=== PATIENT | female | born 1950 | race Caucasian/White ===

== ENCOUNTER 2019-05-18 06:27 | Observation (INO) | payer MEDICARE ==
--- NOTE | 2019-05-18 07:03 | ERPHSYRPT ---
- History of Present Illness Time Seen by Provider: 05/18/19 07:02 Historian: patient Patient Subjective Stated Complaint: PT STATES SHE BEGAN CONGESTION, COUGH, FLU LIKE SYMPTOMS, DRY HEAVES AND HEADACHE 3 AM. Triage Nursing Assessment: PT ALERT AND ORIENTED, STATES SHE HAS HEADACHE THAT IS 10/10, PT IS SITTING UP IN BED AND WRETCHING. Physician History: The patient presents with a chief complaint of nausea and dry heaving that started around 0300 this morning. She reports she has had flu-like symptoms over the past 2-3 days to include subjective fever, L otalgia, rhinorrhea, cough, sore throat, and headache. She tooks some Aleve last night before going to bed with no relief in her symptoms. Since 0300, she has had multiple episodes of nonbloody/nonbilious vomiting. She denies diarrhea, abdominal pain, chest pain, shortness of breath, and symptoms consistent with a UTI. The patient reports that she is a smoker nor does she smoke in the past. She is accompanied emergency department by her sister. Headache is diffuse and radiating down her neck. Associated with retrobulbar eye pain bilaterally. Timing/Duration: other (Vomiting onset 0300) Activities at Onset: none Associated Symptoms: fever/chills, headache, nausea, vomiting Allergies/Adverse Reactions: Sulfa (Sulfonamide Antibiotics) Allergy (Verified 05/18/19 18:28) pt unsure of reaction Home Medications: No Reportable Medications [No Reported Medications] 05/18/19 [History] Hx Influenza Vaccination/Date Given: No - Review of Systems Constitutional: Fever, Chills, Fatigue Eyes: Eye Pain, Photophobia, No Vision Changes, No Double Vision Ears, Nose, & Throat: Ear Pain, Nose Congestion, Throat Pain, No Ear Discharge Respiratory: Cough, No Dyspnea on Exertion (ASHLEY), No Stridor, No Wheezing Cardiac: No Chest Pain, No Palpitations, No Syncope Abdominal/Gastrointestinal: Nausea, Vomiting, No Abdominal Pain, No Diarrhea, No Constipation Genitourinary Symptoms: No Dysuria, No Frequency, No Hematuria Musculoskeletal: Myalgias Skin: No No Symptoms Neurological: Headache Psychological: No Symptoms Endocrine: No Symptoms Hematologic/Lymphatic: No Symptoms - Past Medical History Pertinent Past Medical History: No - Past Surgical History Past Surgical History: Yes Other Surgical History: HAND, HYSTERECTOMY - Social History Smoking Status: Never smoker Exposure to second hand smoke: No Drug Use: none - Female History Hx Last Menstrual Period: HYSTERECTOMY - Nursing Vital Signs Nursing Vital Signs: Initial Vital Signs Temperature 98.0 F 05/18/19 06:42 Pulse Rate 122 H 05/18/19 06:42 Respiratory Rate 18 05/18/19 06:42 Blood Pressure 185/97 05/18/19 06:42 O2 Sat by Pulse Oximetry 98 05/18/19 06:42 Pain Scale Pain Intensity 5 - Physical Exam General Appearance: mild distress, other (Intermittently dry heaving during exam ) Eye Exam: PERRL/EOMI, photophobia, No scleral icterus Ears, Nose, Throat Exam: pharynx normal, moist mucous membranes, TM abnormal (L) , other (Left TM appeared to be bulging and with purulent appearing with no active drainage), No pharyngeal erythema, No tonsillar exudate Neck Exam: normal inspection, meningismus, No limited range of motion, No midline tenderness Respiratory Exam: normal breath sounds, lungs clear, No respiratory distress, No airway intact, No diminished breath sounds, No accessory muscle use Cardiovascular Exam: normal heart sounds, normal peripheral pulses, tachycardia , capillary refill <2 sec, other (Tachycardic) Gastrointestinal/Abdomen Exam: soft, No tenderness, No distention, No mass Back Exam: normal inspection, No CVA tenderness Extremity Exam: normal inspection, normal range of motion Neurologic Exam: alert, oriented x 3, cooperative, other (Seems anxious), No motor deficits, No sensory deficit, No uncooperative Skin Exam: normal color, No warm, No dry, No rash, No petechiae, No jaundice SpO2 Interpretation: normal SpO2: 98 O2 Delivery: Room Air Procedures - Lumbar Puncture Timeout: Performed Indication: headache, r/o meningitis Lumbar Puncture: consent obtained, lying, 1% lidocaine local anesth, 4-5 lumbar space, fluid color cloudy, amount of fluid obtained, no complications - Course Nursing assessment & vital signs reviewed: Yes - Radiology Exams Chest X-ray Interpretation: Interpreted by me, Reviewed by me (No acute cardiopulmonary process), Teleradiologist Report (Hiatal hernia), Negative - CT Exams Head CT Interpretation: Negative (I spoke to the radiologist, who stated the foci of gas is inconsequential. May be normal varient), Tele-radiologist Report, Other (No acute intracranial process identified ) Ordered Tests: Active Orders 24 hr Category Date Time Status IV Insertion STAT Care 05/18/19 07:14 Completed IV Insertion-2nd Peripheral STAT Care 05/18/19 16:52 Completed Oxygen-ED Only Nasal Cannula 2 lpm Care 05/18/19 14:54 Completed PO Fluid Challenge STAT Care 05/18/19 08:49 Completed CHEST 2 VIEWS (PA AND LAT) Stat Exams 05/18/19 07:14 Completed HEAD WITHOUT CONTRAST [CT] Stat Exams 05/18/19 08:57 Completed BLOOD CULTURE Stat Lab 05/18/19 16:40 Received BMP Stat Lab 05/18/19 07:30 Completed CBC W DIFF Stat Lab 05/18/19 07:30 Completed CSF GLUCOSE Stat Lab 05/18/19 12:45 Completed CSF PROTEIN Stat Lab 05/18/19 12:45 Completed CSF, CELL COUNT Stat Lab 05/18/19 12:45 Completed CULTURE,CSF Stat Lab 05/18/19 12:45 Results Transfer Order Routine Transfer 05/18/19 Completed Medication Summary Generic Name Dose Route Start Last Admin Trade Name Freq PRN Reason Stop Dose Admin Acetaminophen 1,000 mg 05/18/19 18:22 Tylenol Extra Strength 500 Mg PO 06/17/19 18:21 Q4H PRN PRN HEADACHE Ceftriaxone Sodium/Dextrose 2 g in 50 mls @ 100 mls/hr 05/19/19 17:00 Rocephin 2 Gm-D5w 50ml Bag IV 06/18/19 16:59 Q24H10 SATINDER Vancomycin HCl 2 gm in 500 mls @ 125 mls/hr 05/19/19 10:00 Vancomycin 1gm/ Ns 250ml IV 06/18/19 09:59 Q24H10 SATINDER Morphine Sulfate 5 mg 05/18/19 18:22 05/18/19 18:53 Morphine Sulfate 10 Mg/Ml IV 05/23/19 18:21 5 mg Q4H PRN PRN Administration PAIN Ondansetron HCl 4 mg 05/18/19 18:22 Zofran 4 Mg/2 Ml Vial IV 06/17/19 18:21 Q6H PRN PRN NAUSEA/VOMITING Discontinued Medications Generic Name Dose Route Start Last Admin Trade Name Freq PRN Reason Stop Dose Admin Acetaminophen 975 mg 05/18/19 08:48 05/18/19 09:06 Tylenol 325 Mg PO 05/18/19 08:49 975 mg STAT ONE Administration Acetaminophen Confirm 05/18/19 09:05 Tylenol 325 Mg Administered 05/18/19 09:06 Dose 975 mg .ROUTE .STK-MED ONE Fentanyl Citrate 100 mcg 05/18/19 11:24 05/18/19 11:30 Sublimaze 100 Mcg/2 Ml IV 05/18/19 11:25 100 mcg STAT ONE Administration Fentanyl Citrate Confirm 05/18/19 11:28 Sublimaze 100 Mcg/2 Ml Administered 05/18/19 11:29 Dose 100 mcg .ROUTE .STK-MED ONE Hydromorphone HCl 1 mg 05/18/19 13:29 05/18/19 13:32 Hydromorphone 1 Mg/Ml Ampule IV 05/18/19 13:30 1 mg STAT ONE Administration Hydromorphone HCl Confirm 05/18/19 13:30 Hydromorphone 1 Mg/Ml Ampule Administered 05/18/19 13:31 Dose 1 mg .ROUTE .STK-MED ONE Hydromorphone HCl 1 mg 05/18/19 18:03 05/18/19 18:08 Hydromorphone 1 Mg/Ml Ampule IV 05/18/19 18:04 1 mg STAT ONE Administration Hydromorphone HCl Confirm 05/18/19 18:01 Hydromorphone 1 Mg/Ml Ampule Administered 05/18/19 18:02 Dose 1 mg .ROUTE .STK-MED ONE Sodium Chloride 1,000 mls @ 999 mls/hr 05/18/19 07:14 05/18/19 09:47 Sodium Chloride 0.9% 1000 Ml IV 05/18/19 08:14 Infused .Q1H1M STA Infusion Sodium Chloride Confirm 05/18/19 07:19 Sodium Chloride 0.9% 1000 Ml Administered 05/18/19 07:20 Dose 1,000 mls @ ud .ROUTE .STK-MED ONE Ceftriaxone Sodium/Dextrose 2 g in 50 mls @ 100 mls/hr 05/19/19 10:00 16:56 Rocephin 2 Gm-D5w 50ml Bag IV 06/18/19 09:59 100 ml/hr Q24H10 SATINDER 100 mls/hr Administration Vancomycin HCl 1 gm in 250 mls @ 167 mls/hr 05/18/19 16:45 05/18/19 18:51 Vancomycin 1gm/ Ns 250ml IV 05/18/19 18:44 167 mls/hr Q1H SATINDER Administration Ceftriaxone Sodium/Dextrose Confirm 05/18/19 16:54 Rocephin 2 Gm-D5w 50ml Bag Administered 05/18/19 16:55 Dose 2 g in 50 mls @ ud IV .STK-MED ONE Vancomycin HCl Confirm 05/18/19 16:54 Vancomycin 1gm/ Ns 250ml Administered 05/18/19 16:55 Dose 250 mls @ ud IV .STK-MED ONE Vancomycin HCl Confirm 05/18/19 18:45 Vancomycin 1gm/ Ns 250ml Administered 05/18/19 18:46 Dose 250 mls @ ud IV .STK-MED ONE Ketorolac Tromethamine 15 mg 05/18/19 08:48 05/18/19 09:06 Toradol 30 Mg Injection IV 05/18/19 08:49 15 mg STAT ONE Administration Ketorolac Tromethamine Confirm 05/18/19 09:05 Toradol 30 Mg Injection Administered 05/18/19 09:06 Dose 30 mg .ROUTE .STK-MED ONE Ondansetron HCl 4 mg 05/18/19 07:14 05/18/19 07:21 Zofran 4 Mg/2 Ml Vial IV 05/18/19 07:15 4 mg STAT STA Administration Ondansetron HCl Confirm 05/18/19 07:19 Zofran 4 Mg/2 Ml Vial Administered 05/18/19 07:20 Dose 4 mg .ROUTE .STK-MED ONE Ondansetron HCl 4 mg 05/18/19 13:29 05/18/19 13:33 Zofran 4 Mg/2 Ml Vial IV 05/18/19 13:30 4 mg STAT ONE Administration Ondansetron HCl Confirm 05/18/19 13:32 Zofran 4 Mg/2 Ml Vial Administered 05/18/19 13:33 Dose 4 mg .ROUTE .STK-MED ONE Ondansetron HCl 4 mg 05/18/19 18:03 05/18/19 18:08 Zofran 4 Mg/2 Ml Vial IV 05/18/19 18:04 4 mg STAT ONE Administration Ondansetron HCl Confirm 05/18/19 18:02 Zofran 4 Mg/2 Ml Vial Administered 05/18/19 18:03 Dose 4 mg .ROUTE .STK-MED ONE Lab/Rad Data: Laboratory Result Diagrams 05/18/19 07:30 05/18/19 07:30 Laboratory Results 05/18/19 05/18/19 05/18/19 Range/Units 12:45 12:45 07:30 WBC (4.0-10.5) K/mm3 RBC (4.1-5.4) M/mm3 Hgb (12.0-16.0) gm/dl Hct (35-47) % MCV (78-100) fl MCH (26-32) pg MCHC (32-36) g/dl RDW (11.5-14.0) % Plt Count (150-450) K/mm3 MPV (6-9.5) fl Gran % (36.0-66.0) % Eos # (Auto) (0-0.5) Absolute Lymphs (auto) (1.0-4.6) Absolute Monos (auto) (0.0-1.3) Lymphocytes % (24.0-44.0) % Monocytes % (0.0-12.0) % Eosinophils % (0.00-5.0) % Basophils % (0.0-0.4) % Absolute Granulocytes (1.4-6.9) Basophils # (0-0.4) Sodium (137-145) mmol/L Potassium (3.5-5.1) mmol/L Chloride (98-107) mmol/L Carbon Dioxide (22-30) mmol/L Anion Gap (5-15) MEQ/L BUN (7-17) mg/dL Creatinine (0.52-1.04) mg/dL Estimated GFR ML/MIN Glucose (74-106) mg/dL Calcium (8.4-10.2) mg/dL CSF Color COLORLESS CSF Clarity SL CLOUDY CSF WBC 1892 H (0-6) CU. MM CSF RBC 572 H (0-2) CU. MM CSF Protein (2) > 600 H (12-60) mg/dL CSF Glucose < 20 L (40-70) mg/dL Influenza Type A Ag NEGATIVE (NEGATIVE) Influenza Type B Ag NEGATIVE (NEGATIVE) RSV (PCR) NEGATIVE (Negative) 05/18/19 05/18/19 Range/Units 07:30 07:30 WBC 9.8 (4.0-10.5) K/mm3 RBC 4.19 (4.1-5.4) M/mm3 Hgb 11.6 L (12.0-16.0) gm/dl Hct 36.4 (35-47) % MCV 86.9 (78-100) fl MCH 27.7 (26-32) pg MCHC 31.9 L (32-36) g/dl RDW 14.5 H (11.5-14.0) % Plt Count 330 (150-450) K/mm3 MPV 9.5 (6-9.5) fl Gran % 62.5 (36.0-66.0) % Eos # (Auto) 0.15 (0-0.5) Absolute Lymphs (auto) 2.59 (1.0-4.6) Absolute Monos (auto) 0.90 (0.0-1.3) Lymphocytes % 26.6 (24.0-44.0) % Monocytes % 9.2 (0.0-12.0) % Eosinophils % 1.5 (0.00-5.0) % Basophils % 0.2 (0.0-0.4) % Absolute Granulocytes 6.09 (1.4-6.9) Basophils # 0.02 (0-0.4) Sodium 140 (137-145) mmol/L Potassium 4.0 (3.5-5.1) mmol/L Chloride 105 (98-107) mmol/L Carbon Dioxide 27 (22-30) mmol/L Anion Gap 12.1 (5-15) MEQ/L BUN 11 (7-17) mg/dL Creatinine 0.62 (0.52-1.04) mg/dL Estimated GFR > 60.0 ML/MIN Glucose 142 H (74-106) mg/dL Calcium 9.2 (8.4-10.2) mg/dL CSF Color CSF Clarity CSF WBC (0-6) CU. MM CSF RBC (0-2) CU. MM CSF Protein (2) (12-60) mg/dL CSF Glucose (40-70) mg/dL Influenza Type A Ag (NEGATIVE) Influenza Type B Ag (NEGATIVE) RSV (PCR) (Negative) - Progress Progress: improved, re-examined Progress Note: 05/18/19 10:[address] reviewed by me and with no evidence of SAH, ICH, or mass. No acute process identified. Awaiting formal radiology review. 05/18/19 10:55 I discussed the patient's head CT and laboratory workup findings. She does have significant rigidity and retro-orbital pain ongoing headache. Suspicious the patient may have a meningitis, suspect likely viral meningitis at this time. We discussed risks benefits of lumbar puncture and the patient decided she wanted to proceed with a lumbar puncture for definitive diagnosis. She is currently being consented for the procedure at this time. 05/18/19 17:15 Nursing paging the patient's primary physician for admission. 05/18/19 16:46 I spoke to the patient's primary care provider who agreed to admit the patient. She recommended giving the patient the choice of transfer to stay at this location. If she wants to stay here, she recommended admitting under Dr. Lott. We discussed the CSF results and the fact that the gram stain is negative, but with a large CSF pleuocytosis with neutrophils. She recommended treating empirically with vancomycin and ceftriaxone until the CSF culture and bacterial PCR can result. 05/18/19 17:00 I spoke with the patient pertaining to admission at this location vs. transfer and the patient requested to stay at this location. Dr. Martinez was then paged and agreed to admit the patient to this facility. She was updated with the discussion with her PCP about treating with empiric abx until her CSF cx can result. Likely viral meningitis, but if proven to be bacterial, she can be transferred at that time. Discussed with : Sarah (I spoke to Dr. Martinez, who is covering for [facility] and non doctor. I discussed the case with her and she agreed to admit for observation) Will see patient in: hospital (observation) Counseled pt/family regarding: lab results, diagnosis, rad results - Departure Departure Disposition: Observation Clinical Impression: Meningitis Condition: Fair Critical Care Time: Yes Critical Care Time(excluding separately billable procedures): Critical 75-104 mins
[2019-05-18] MEDS ORDERED: Sodium Chloride 0.9% 1000 ML 1,000 ML IV STA (07:14)
[2019-05-18] MEDS ORDERED: Zofran 4 MG/2 ML VIAL IV STA (07:14)
[2019-05-18] MEDS ORDERED: Sodium Chloride 0.9% 1000 ML 1,000 ML ONE (07:19)
[2019-05-18] MEDS ORDERED: Zofran 4 MG/2 ML VIAL ONE ×4 (07:19→22:49)
[2019-05-18 07:57] LABS: Absolute Neutrophil Ct (ANC) 6.09 (1.4-6.9); BASOPHIL % 0.2 % (0.0-0.4); Basophil (Absolute #) 0.02 (0-0.4); Eosinophil % 1.5 % (0.00-5.0); Eosinophil (Absolute #) 0.15 (0-0.5); Hematocrit 36.4 % (35-47); Hemoglobin 11.6 gm/dl (12.0-16.0); Lymphocyte (Absolute #) 2.59 (1.0-4.6); Lymphocytes % 26.6 % (24.0-44.0); Mean Cell Volume 86.9 fl (78-100); Mean Corpuscular Hemoglobin 27.7 pg (26-32); Mean Corpuscular Hgb Concent. 31.9 g/dl (32-36); Mean Platelet Volume 9.5 fl (6-9.5); Monocytes % 9.2 % (0.0-12.0); Neutrophil % 62.5 % (36.0-66.0); Platelet Count 330 K/mm3 (150-450); Red Blood Count 4.19 M/mm3 (4.1-5.4); Red Cell Distribution Width 14.5 % (11.5-14.0); White Blood Count 9.8 K/mm3 (4.0-10.5)
[2019-05-18 08:01] LABS: ANION GAP 12.1 MEQ/L (5-15); BLOOD UREA NITROGEN 11 mg/dL (7-17); CHLORIDE 105 mmol/L (98-107); Calcium 9.2 mg/dL (8.4-10.2); Carbon Dioxide 27 mmol/L (22-30); Creatinine 1 0.62 mg/dL (0.52-1.04); Glucose 142 mg/dL (74-106); SODIUM 140 mmol/L (137-145)
[2019-05-18 08:29] LABS: INFLUENZA A NEGATIVE (NEGATIVE); INFLUENZA B NEGATIVE (NEGATIVE); RESPIRATORY SYNCTIAL VIRUS NEGATIVE (Negative)
[2019-05-18] MEDS ORDERED: TYLENOL 325 MG PO ONE (08:48)
[2019-05-18] MEDS ORDERED: TORAdol 30 mg Injection IV ONE (08:48)
[2019-05-18] MEDS ORDERED: TYLENOL 325 MG ONE (09:05)
[2019-05-18] MEDS ORDERED: TORAdol 30 mg Injection ONE (09:05)
[2019-05-18] MEDS ORDERED: SUBLIMAZE 100 MCG/2 ML IV ONE (11:24)
[2019-05-18] MEDS ORDERED: SUBLIMAZE 100 MCG/2 ML ONE (11:28)
[2019-05-18] MEDS ORDERED: Hydromorphone 1 mg/ml Ampule IV ONE ×2 (13:29→18:03)
[2019-05-18] MEDS ORDERED: Zofran 4 MG/2 ML VIAL IV ONE ×2 (13:29→18:03)
[2019-05-18] MEDS ORDERED: Hydromorphone 1 mg/ml Ampule ONE ×2 (13:30→18:01)
[2019-05-18 14:21] LABS: CSF GLUCOSE < 20 mg/dL (40-70); CSF PROTEIN > 600 mg/dL (12-60)
[2019-05-18 14:36] LABS: CSF CLARITY SL CLOUDY; CSF RBCS 572 CU. MM (0-2)
[2019-05-18 14:37] LABS: CSF COLOR COLORLESS
[2019-05-18 15:20] LABS: CSF WBCS 1892 CU. MM (0-6)
[2019-05-18] MEDS ORDERED: Vancomycin 1GM/ Ns 250ML*** 250 ML IV ONE ×2 (16:54→18:45)
[2019-05-18] MEDS ORDERED: ROCEPHIN 2 Gm-D5w 50ML BAG** 2 G/50 ML IVPB IV ONE (16:54)
[2019-05-18] MEDS: Vancomycin 1GM/ Ns 250ML*** 1 GM/250 ML IVPB IV SCH ×2 (16:57→18:51)
[2019-05-18] MEDS ORDERED: TYLENOL EXTRA STRENGTH 500 MG PO PRN (18:22)
[2019-05-18] MEDS ORDERED: Zofran 4 MG/2 ML VIAL IV PRN ×2 (18:22→22:46)
[2019-05-18] MEDS ORDERED: MORPHINE SULFATE 10 MG/ML ONE ×2 (18:51→22:28)
[2019-05-18] MEDS: MORPHINE SULFATE 10 MG/ML IV PRN ×2 (18:53→22:30)
--- NOTE | 2019-05-18 19:15 | XRAY ---
Indication: Cough. Comparison: February 26, 2015. PA/lateral chest remains clear. Heart is not enlarged. New small hiatal hernia. Bony thorax intact again with osteopenia and degenerative changes. Impression: New hiatal hernia. No new/acute cardiopulmonary abnormalities. Comment: Preliminary interpretation was made by [facility]. No critical discrepancy.
--- NOTE | 2019-05-18 19:19 | XRAY ---
Indication: Headache and nausea. Multiple contiguous axial images obtained through the head without contrast. Comparison: None Age-appropriate global atrophy. Right external capsule remote lacunar infarct. No acute intracranial hemorrhage, abnormal extra-axial fluid collection, or mass effect. Fourth ventricle is midline without hydrocephalus. Tiny pneumocephalus in the posterior and left middle fossa. Bony calvarium intact. Moderate mucosal thickening of both ethmoid and both maxillary sinuses without fluid leveling. Mastoid air cells are clear. Impression: 1. Pneumocephalus without acute intracranial hemorrhage or fracture. No known injury. Query recent lumbar puncture? 2. Right external capsule lacunar infarct. 3. Incidental paranasal sinus disease. Comment: Preliminary interpretation was made by [facility]. No critical discrepancy. CTDI 54.01
[2019-05-18] MEDS ORDERED: DILAUDID 2 MG INJECTION IV PRN (22:44)
[2019-05-18] MEDS ORDERED: Ativan 2 MG/1 ML VIAL ONE (22:49)
[2019-05-18] MEDS: Ativan 2 MG/1 ML VIAL IV PRN (22:52)
[2019-05-18] MEDS ORDERED: Sodium Chloride 0.9% 100 ML IVPB 100 ML IV ONE (23:21)
[2019-05-18] MEDS ORDERED: OMNIPEN 2 GM / NACL 100ML 100 ML ONE (23:21)
[2019-05-18 23:30] VITALS: O2SAT 96
[2019-05-18] MEDS ORDERED: OMNIPEN 2 GM IV SCH (23:30)
[2019-05-18] MEDS ORDERED: Sodium Chloride 0.9% 1000 ML 1,000 ML IV SCH (23:45)
[2019-05-19] MEDS ORDERED: Ativan 2 MG/1 ML VIAL ONE (00:07)
[2019-05-19] MEDS: Ativan 2 MG/1 ML VIAL IV PRN (00:09)
[2019-05-19] MEDS ORDERED: DILAUDID 2 MG INJECTION IV ONE (00:16)
[2019-05-19] MEDS ORDERED: Zovirax INJ IV ONE (01:15)
--- NOTE | 2019-05-19 01:19 | PCM.HP ---
History of Present Illness - Chief Complaint Chief Complaint: Increased agitation. Presented to ER with 2-3 days of flu like symptoms. Date: 05/19/19 History of Present Illness: is a 68 year old female. Patient of Dr. Green. She was admitted with hx of 2-3 days of flu like illness and then started having vomiting, subjective fever and headache with radiation down her neck. She had Lumbar puncture done in ER after head CT that was reported by ER doctor as normal. The lumbar puncture showed elevated WBC at 1892 and lab initially reported 97% lymphs but at some point changed this differential to 97% neutrophils. She had glucose <20, RBC 572. PCR was ordered and lab stated that could not be sent out until 05/19/19. She has Blood culture and CSF culture in lab. Her nurse called me tonight and stated she was complaining of more pain with pain down her left leg and writhing in the bed and also vomiting and this seemed to be new from when she was in the ER. She had required pain medication in the ER. I ordered dilauded and ativan and with this she slept for about an hour but O2 sat dropped with sleep and then required oxygen by mask. She arouses for me and when I ask her if she can tell me where her pain is she says "yes" but then does not verbalize further. She continues to have dry heaves. PMH, Darrel hx, Fam hx and social hx all from ER or nurses notes as unobtainable from patient at this time. 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 - Female History Hx Last Menstrual Period: HYSTERECTOMY Are you now?: No - Past Surgical History Past Surgical History: Yes Neuro Surgical History: No Pertinent History Genitourinary Surgical Hx: No Pertinent History Musculskeletal Surgical Hx: Amputation Female Surgical History: Hysterectomy Other Surgical History: HAND, HYSTERECTOMY - Social History Smoking Status: Never smoker Exposure to second hand smoke: No Alcohol: None Drug Use: none - Physical Exam Vital Signs: Vital Signs - 24 hr Temp Pulse Resp BP Pulse Ox 05/18/19 23:28 96 05/18/19 19:36 98 05/18/19 18:27 96.3 F 106 H 20 130/78 99 05/18/19 17:49 112 H 20 169/88 99 05/18/19 16:58 100 H 16 156/74 100 05/18/19 16:56 103 H 156/74 100 05/18/19 16:17 100 H 16 149/78 98 05/18/19 14:55 100 H 18 144/82 97 05/18/19 14:19 100 H 18 130/83 94 L 05/18/19 13:28 104 H 20 148/87 97 05/18/19 12:08 114 H 16 136/67 98 05/18/19 11:05 116 H 145/92 96 05/18/19 10:36 113 H 168/90 95 05/18/19 09:12 69 18 160/88 98 05/18/19 07:37 106 H 18 150/102 99 05/18/19 06:42 98.0 F 122 H 18 185/97 98 Oxygen-Last 24 hours O2 Percentage 2 Liters = 28% O2 Percentage 2 Liters = 28% O2 Percentage 2 Liters = 28% O2 Percentage 2 Liters = 28% General Appearance: moderate distress, other (at first sleeping the arouseable and moving all over bed and trying to stand up. Acts as if she is in pain but can't state to me where the pain is.) Neurologic Exam: other (moving all 4 ext) Respiratory Exam: normal breath sounds, lungs clear, No crackles/rales, No rhonchi, No wheezing Cardiovascular Exam: other (tachycardic, regular rhythm), No murmur, No friction rub, No gallop Gastrointestinal/Abdomen Exam: soft, normal bowel sounds, No tenderness, No distention, No mass Back Exam: other (bruise on lower back at site of lumbar puncture) Extremity Exam: other (no c/c/e; +2 radial pulses bilat) Skin Exam: other (erythematous rash in groin area bilat, no blisters) Results - Labs Lab/Micro Results: Lab Results-Last 24 Hours 05/18/19 05/18/19 05/18/19 Range/Units 07:30 07:30 07:30 WBC 9.8 (4.0-10.5) K/mm3 RBC 4.19 (4.1-5.4) M/mm3 Hgb 11.6 L (12.0-16.0) gm/dl Hct 36.4 (35-47) % MCV 86.9 (78-100) fl MCH 27.7 (26-32) pg MCHC 31.9 L (32-36) g/dl RDW 14.5 H (11.5-14.0) % Plt Count 330 (150-450) K/mm3 MPV 9.5 (6-9.5) fl Gran % 62.5 (36.0-66.0) % Eos # (Auto) 0.15 (0-0.5) Absolute Lymphs (auto) 2.59 (1.0-4.6) Absolute Monos (auto) 0.90 (0.0-1.3) Lymphocytes % 26.6 (24.0-44.0) % Monocytes % 9.2 (0.0-12.0) % Eosinophils % 1.5 (0.00-5.0) % Basophils % 0.2 (0.0-0.4) % Absolute Granulocytes 6.09 (1.4-6.9) Basophils # 0.02 (0-0.4) Sodium 140 (137-145) mmol/L Potassium 4.0 (3.5-5.1) mmol/L Chloride 105 (98-107) mmol/L Carbon Dioxide 27 (22-30) mmol/L Anion Gap 12.1 (5-15) MEQ/L BUN 11 (7-17) mg/dL Creatinine 0.62 (0.52-1.04) mg/dL Estimated GFR > 60.0 ML/MIN Glucose 142 H (74-106) mg/dL Calcium 9.2 (8.4-10.2) mg/dL CSF Color CSF Clarity CSF WBC (0-6) CU. MM CSF RBC (0-2) CU. MM CSF Protein (2) (12-60) mg/dL CSF Glucose (40-70) mg/dL Influenza Type A Ag NEGATIVE (NEGATIVE) Influenza Type B Ag NEGATIVE (NEGATIVE) RSV (PCR) NEGATIVE (Negative) 05/18/19 05/18/19 Range/Units 12:45 12:45 WBC (4.0-10.5) K/mm3 RBC (4.1-5.4) M/mm3 Hgb (12.0-16.0) gm/dl Hct (35-47) % MCV (78-100) fl MCH (26-32) pg MCHC (32-36) g/dl RDW (11.5-14.0) % Plt Count (150-450) K/mm3 MPV (6-9.5) fl Gran % (36.0-66.0) % Eos # (Auto) (0-0.5) Absolute Lymphs (auto) (1.0-4.6) Absolute Monos (auto) (0.0-1.3) Lymphocytes % (24.0-44.0) % Monocytes % (0.0-12.0) % Eosinophils % (0.00-5.0) % Basophils % (0.0-0.4) % Absolute Granulocytes (1.4-6.9) Basophils # (0-0.4) Sodium (137-145) mmol/L Potassium (3.5-5.1) mmol/L Chloride (98-107) mmol/L Carbon Dioxide (22-30) mmol/L Anion Gap (5-15) MEQ/L BUN (7-17) mg/dL Creatinine (0.52-1.04) mg/dL Estimated GFR ML/MIN Glucose (74-106) mg/dL Calcium (8.4-10.2) mg/dL CSF Color COLORLESS CSF Clarity SL CLOUDY CSF WBC 1892 H (0-6) CU. MM CSF RBC 572 H (0-2) CU. MM CSF Protein (2) > 600 H (12-60) mg/dL CSF Glucose < 20 L (40-70) mg/dL Influenza Type A Ag (NEGATIVE) Influenza Type B Ag (NEGATIVE) RSV (PCR) (Negative) Microbiology 05/18/19 12:45 Gram Stain - Preliminary Cerebral Spinal Fluid Per second report from lab differential on CSF WBC is 97% Neutrophils, 2 % lymphs, 1 % monos ( was previously reported as 97% lymphocytes, 2% neutrophils and 1% monos) - Radiology Impressions Radiology Exams & Impressions: Radiology Procedures Category Date Time Status CHEST 2 VIEWS (PA AND LAT) Stat Exams 05/18/19 07:14 Completed HEAD WITHOUT CONTRAST [CT] Stat Exams 05/18/19 08:57 Completed - Other Procedures and Tests Respiratory Therapy 05/18/19 23:27 Oxygen Oxymask LPM 15% Assessment/Plan (1) Meningitis Current Visit: Yes Status: Acute Assessment & Plan: CSF studies concerning for bacterial meningitis. Vancomycin given in ER at 16: 45 on 05/18/19 and ceftriazone 2 G at 1700 on 05/18/19. Ampicillin given early this AM. I ordered acyclovir to be given before her transfer to [facility]. Discussed with Dr. Putnam who was willing to accept her to transfer to [facility]. I also called her daughter to discuss this and nurses obtained consent for her to transfer from her daughter. CSF culture, blood cultures ordered and in lab; CSF PCR ordered (lab reports it will be sent out 05/19/19). Gram stain of CSF was neg for bacteria. Code(s): G03.9 - MENINGITIS, UNSPECIFIED
[2019-05-19 01:24] LABS: A-aADO2 541; ABG POTASSIUM 3.6 (3.5-5.1); ARTERIAL BLOOD GAS BASE EXCESS -0.3 (-2.0-2.0); ARTERIAL BLOOD GAS PO2 82 mmHg (75-100); ARTERIAL BLOOD GAS pH 7.21 (7.35-7.45); CARBOXYHEMOGLOBIN 3.3 % THgb (0.0-6.9); HCO3- 28.8 (22-28); HGB O2 SAT 94.9 g/dF (94-100); Methhemoglobin 0.5 % (1.4-1.5); paO2 pAO1 0.13
[2019-05-19 01:25] LABS: ABG HEMOGLOBIN 10.5; ARTERIAL BLD GAS O2 SATURATION 98 % (95-100); ARTERIAL BLOOD GAS FIO2 100 %; ARTERIAL BLOOD GAS PCO2 72 mmHg (35-45)
[2019-05-19 01:26] LABS: ABG SITE LEFT RADIAL
[2019-05-19 02:52] VITALS: BP 124/57; PULSE 120
[2019-05-19] MEDS ORDERED: ROCEPHIN 2 Gm-D5w 50ML BAG** 2 G/50 ML IVPB IV SCH ×3 (05:00→17:00)
[2019-05-19] MEDS ORDERED: Vancomycin 1GM/ Ns 250ML*** 2 GM/500 ML IVPB IV SCH (10:00)
== END 2019-05-19 02:15 | disposition home or self-care (01) ==
LOC: ED 06:27 → MED SURG 18:09
PROVIDERS: ADMIT Internal Medicine; ATTEND General Practice
DX: G03.9 Meningitis, unspecified (principal); R45.1 Restlessness and agitation; R51 Headache
CPT/HCPCS: 36000; 36415; 36600; 70450; 71046; 80048; 82375; 82803; 82945; 84157; 85025; 87040; 87070; 87077; 87631; 89050; 94002; 94762; 96360; 96365; 96368; 96374; 96375; 96376; 99285; G0378; 86403; 87483; J0133; J0290; J0696; J1170; J1885; J2060; J2270; J2405; J3010; J3370; A9270-GY